=== PATIENT | female | born 1995 | race Caucasian/White ===

== ENCOUNTER 2017-12-05 12:36 | Emergency (ER) | payer MEDICAID ==
[2017-12-05] MEDS ORDERED: Acyclovir* 200 MG CAP PO ONE (13:16)
[2017-12-05] MEDS ORDERED: Cephalexin CAP* 500 MG PO ONE (13:16)
[2017-12-05 13:48] VITALS: BP 104/65
--- NOTE | 2017-12-06 11:54 | ED ---
Thalia Alas Edward, scribed for Glenda Evans MD on 12/05/17 at 1303 . Lower Extremity - HPI Summary HPI Summary: 22 y/o female presents to the ED c/o area of erythema and edema on RLE starting 2 days ago. The area is painful, waxing and waning in severity. Pain aggravated with ambulation. Today the pain is better than it was yesterday. Pt states popped yesterday and scabbed over. Pt is 8.5 weeks . Pt states she had a similar episode when she was previously. Pt had chicken pox at 17. PMHx asthma. - History of Current Complaint Chief Complaint: EDExtremityLower Stated Complaint: RT LEG SWOLLEN Time Seen by Provider: 12/05/17 12:57 Hx Obtained From: Patient Hx Last Menstrual Period: irreg - does not recall Onset/Duration: Days Pain Intensity: 0 Timing: Constant Location: Is Discrete @ - RLE Associated Signs And Symptoms: Positive: Redness Aggravating Factor(s): Ambulation Alleviating Factor(s): Nothing - Allergies/Home Medications Allergies/Adverse Reactions: Allergies Allergy/AdvReac Type Severity Reaction Status Date / Time ciprofloxacin [From Cipro] Allergy Hives Verified 12/05/17 13:10 Fish Containing Products Allergy Hives Verified 12/05/17 13:08 levofloxacin [From Levaquin] Allergy Itching Verified 12/05/17 13:08 seasonal Allergy Coughing Uncoded 03/13/15 13:43 PMH/Surg Hx/FS Hx/Imm Hx Previously Healthy: No Endocrine/Hematology History: Reports: Hx Thyroid Disease - hypo- just monitoring, Hx Anemia Denies: Hx Anticoagulant Therapy, Hx Diabetes Cardiovascular History: Reports: Hx Hypertension - Pt reports "Borderline high blood pressure", no meds Respiratory History: Reports: Hx Asthma, Hx Pneumonia, Hx Seasonal Allergies Denies: Hx Chronic Obstructive Pulmonary Disease (COPD) GI History: Reports: Other GI Disorders - lactose intolerant Denies: Hx Ulcer Sensory History: Reports: Hx Contacts or Glasses Opthamlomology History: Reports: Hx Contacts or Glasses Psychiatric History: Reports: Hx Anxiety, Hx Attention Deficit Hyperactivity Disorder, Hx Depression, Hx Panic Disorder, Hx Inpatient Treatment, Hx Community Mental Health Tx, Hx Bipolar Disorder, Hx Suicide Attempt, Hx of Violent Episodes Against Others, Other Psychiatric Issues/Disorders - odd, adhd Denies: Hx Eating Disorder, Hx Substance Abuse - Surgical History Surgery Procedure, Year, and Place: tooth extraction at age 10yrs - Immunization History Date of Tetanus Vaccine: unknown Infectious Disease History: No Infectious Disease History: Denies: Hx Clostridium Difficile, Hx Hepatitis, Hx Human Immunodeficiency Virus (HIV), Hx of Known/Suspected MRSA - exposed to mrsa, Hx Tuberculosis, Traveled Outside the [place] in Last 30 Days - Family History Known Family History: Positive: Unknown - Social History Alcohol Use: None Substance Use Type: Reports: None Substance Use Comment - Amount & Last Used: trying to cut back Hx Tobacco Use: Yes Smoking Status (MU): Heavy Every Day Tobacco Smoker Type: Cigarettes Amount Used/How Often: 1/2 ppd or less Review of Systems Constitutional: Negative Eyes: Negative ENT: Negative Cardiovascular: Negative Respiratory: Negative Gastrointestinal: Negative Genitourinary: Negative Musculoskeletal: Negative Positive: Rash - red spot on RLE Neurological: Negative Psychological: Normal All Other Systems Reviewed And Are Negative: Yes Physical Exam - Summary Physical Exam Summary: GENERAL: ~Patient is a well developed and nourished F who is lying comfortable in the stretcher. ~Patient is not in any acute respiratory distress. HEAD AND FACE: Normocephalic EYES: PERRLA, EOMI x 2. EARS: Hearing grossly intact. MOUTH: Oropharynx within normal limits. NECK: Supple, trachea is midline, no adenopathy, no JVD, no carotid bruit. CHEST: Symmetric, no tenderness at palpation LUNGS: Clear to auscultation bilaterally. No wheezing or crackles. CVS: Regular rate and rhythm, S1 and S2 present, no murmurs or gallops appreciated. ABDOMEN: Soft, non-tender. Bowel sounds are normal. No abdominal abnormal pulsations. EXTREMITIES: Full ROM in all major joints, no edema, no cyanosis or clubbing. NEURO: Alert and oriented x 3. No acute neurological deficits. Speech is normal and follows commands. SKIN: Dry and warm. Small area of erythema with vesicular ruptures in the middle @ lateral aspect of RLE. Triage Information Reviewed: Yes Vital Signs On Initial Exam: Initial Vitals Temp Pulse Resp BP Pulse Ox 97.8 F 85 15 100/78 100 12/05/17 12:40 12/05/17 12:40 12/05/17 12:40 12/05/17 12:40 12/05/17 12:40 Vital Signs Reviewed: Yes Diagnostics - Vital Signs Vital Signs Temp Pulse Resp BP Pulse Ox 12/05/17 12:40 97.8 F 85 15 100/78 100 - Laboratory Lab Statement: Any lab studies that have been ordered have been reviewed, and results considered in the medical decision making process. Lower Extremity Course/Dx - Course Assessment/Plan: 25 y/o female presents to the ED with vesicular rash on RLE, could be shingles or MRSA. Given the pt is I would prefer to be aggressive to treat MRSA and shingles. She was sent home on Keflex and acyclovir for 10 days. - Diagnoses Provider Diagnoses: Vesicular rash Discharge - Sign-Out/Discharge Documenting (check all that apply): Discharge/Admit/Transfer - Discharge Plan Condition: Stable Disposition: HOME Prescriptions: Acyclovir [Zovirax] 800 mg PO Q6HR 10 Days #80 tablet Cephalexin CAP* [Keflex CAP*] 500 mg PO QID 10 Days #40 cap Patient Education Materials: MRSA (Methicillin-Resistant Staphylococcus Aureus ) (ED), Shingles (ED) Referrals: Non Staff,Doctor [Primary Care Provider] - 4 Days (PLEASE F/U IN 3-5 DAYS) Additional Instructions: RETURN TO THE ED FOR CHANGING/WORSENING SYMPTOMS The documentation as recorded by the Thalia hutchins Edward accurately reflects the service I personally performed and the decisions made by , Glenda Evans MD.
== END 2017-12-05 13:47 | disposition home or self-care (01) ==
LOC: ED 12:36 → SUPCPDRO 12:36 → ED 13:47
DX: O26.891 Other specified pregnancy related conditions, first trimester (principal); R21 Rash and other nonspecific skin eruption; O99.331 Smoking (tobacco) complicating pregnancy, first trimester; F17.210 Nicotine dependence, cigarettes, uncomplicated; O99.281 Endocrine, nutritional and metabolic diseases complicating pregnancy, first trimester; E03.9 Hypothyroidism, unspecified; Z3A.08 8 weeks gestation of pregnancy
CPT/HCPCS: 87070; 87077; 87205; 87529; 87798; 99282; A9270-GY

== ENCOUNTER 2018-06-21 12:02 | Inpatient (IN) | payer OTHER ==
[2018-06-21] MEDS ORDERED: Misoprostol TAB* 100 MCG PO ONE (13:22)
[2018-06-21] MEDS ORDERED: Penicillin G Potassium IV* 5,000,000 UNITS in NS 0.9% 100 ML* 100 ML IVPB ONE ×2 (13:22→13:27)
[2018-06-21] MEDS ORDERED: Nicotine PATCH 7 MG/24 HR* PATCH TRANSDERM SCH (14:00)
--- NOTE | 2018-06-21 14:44 | HP ---
General Information - Reason for Visit cervical ripening - General Information Maternal Age: 23 Grav: 2 Para: 1 SAB: 1 IEA: 0 Estimated Due Date: 06/27/18 Determined By: LMP Maternal Blood Type and Rh: A Positive - Results this Serology/RPR Result: Non-Reactive Rubella Result: Immune HBsAg Result: Negative HIV Result: Negative GBS Culture Result: Positive Past Medical History Delivery History: Hx Uncomplicated Vaginal Delivery Pertinent Past Medical History: See Records - hx UTIs, anxiety and depression, hx hypothyroidism Pertinent Past Surgical History: See Records - gallbladder removed Pertinent Family History: See Records - stroke, CVD, HTN, high chol, thyroid, mental illness, DM - Antepartal Records Antepartal Records: Reviewed, Complicated by: - tobacco use, THC, 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, gestational diabetes Review of Systems Constitutional: Comfortable CV Complaint: No Respiratory: Shortness of Breath: No Gastrointestinal: No Nausea/Vomiting, Normal Bowel Movement Genitourinary: No Dysuria, No Bleeding, No Leaking Fluid Musculoskeletal: No Complaint, No Epigastric Pain Neurological: No Headache, No Visual Changes Movement: Normal Exam Allergies/Adverse Reactions: Allergies ciprofloxacin [From Cipro] Allergy (Verified 12/05/17 13:10) Hives Fish Containing Products Allergy (Verified 12/05/17 13:08) Hives levofloxacin [From Levaquin] Allergy (Verified 12/05/17 13:08) Itching seasonal Allergy (Uncoded 03/13/15 13:43) Coughing T:98.9, P:94, R:18, BP: 107/70, O2:98% - Measurements Height: 5 ft 3 in Weight: 160 lb Weight in lbs: 160.900904 Body Mass Index (BMI): 28.3 Pre- Weight: 135 lb Weight Gained This : 25 lbs and 0 ozs - Exam Breast: Breast Exam Deferred CVA: No CVA Tenderness Extremities: No Edema Heart: Normal Rhythm/Heart Sounds HEENT: No Significant Findings Lungs: Clear Bilaterally Rectal: Rectal Exam Deferred Reflexes: DTR 2+ Thyroid: No Thyromegaly - Abdominal Exam Abdomen Exam: Fundal Height Consistent with Dates - Ultrasound/Biophysical Profile Ultrasound Status: Not Done Targeted Exam Findings Estimated Weight: 7lbs 2oz Cervical Exam: 2cm Effacement: 50% Station: -2 Presenting Part: Vertex Membrane Status: Intact Bleeding/Discharge: None EFM Findings - External Monitor Findings Baseline Heart Rate: 140 External Monitor Findings: Accelerations Present, No Pattern of Variable or Late Decelerations, Variability Moderate, Baseline Stable Contractions: None Assessment/Plan - Assessment 23 y.o. , 39w1d EGA, GBS +, Gestational diabetes - Obstetrical Risk Factors Obstetrical Risk Factors: GBS Positive, Tobacco Use, Psychosocial Issues - Plan Plan: Cervical Ripening - Date/Time of Admission Date of Admission: 06/21/18 Time of Admission: 14:46
[2018-06-21] MEDS ORDERED: Nalbuphine* 10 MG/ML 1 ML VIAL IV ONE (20:05)
[2018-06-21] MEDS ORDERED: Promethazine INJ(RESTRICTED)* 25 MG/ML 1 ML VIAL IV ONE (20:05)
--- NOTE | 2018-06-21 20:13 | PN ---
Progress Note - Progress Note Date of Service: 06/21/18 SOAP: Subjective: [Pt reports cramping, denies contractions, -LOF, +FM, +bloody show] Objective: [T:98.9, R:18, BP: 108/69, P:83 FHT: 140 bpm, +accels, -decels, moderate variability, ctx q 3 min cervix: 3-4cm/80%/-1] Assessment: [23 y.o. , GBS +, Gestational diabetes, early labor] Plan: [1) Initiate IV access and GBS prophylaxis 2) Hydrotherapy 3) Revaluate PRN]
[2018-06-21 21:31] LABS: Hematocrit 37 % (35-47); Hemoglobin 12.7 g/dl (12.0-16.0); Mean Corpuscular HGB Conc 35 g/dl (31-36); Mean Corpuscular Hemoglobin 31 pg (27-31); Mean Corpuscular Volume 89 fL (80-97); Mean Platelet Volume 8.1 fL (7.4-10.4); Platelet Count 281 10^3/ul (150-450); Red Blood Count 4.12 10^6/ul (4.00-5.40); Red Cell Distribution Width 14 % (10.5-15); White Blood Count 19.7 10^3/ul (3.5-10.8)
[2018-06-21 21:53] LABS: ABS Basophils 0.1 10^3/ul (0-0.2); ABS Eosinophils 0.2 10^3/ul (0-0.6); ABS Lymphocytes 3.4 10^3/ul (1.0-4.8); ABS Monocytes 1.6 10^3/ul (0-0.8); ABS Neutrophils 14.4 10^3/ul (1.5-7.7); ABS Nucleated RBC 0 10^3/ul; Lymphocyte % 17.3 % (25-47); Nucleated Red Blood Cells % 0
[2018-06-21] MEDS ORDERED: NS 0.9% 100 ML* 0 ML ONE (21:57)
[2018-06-22] MEDS ORDERED: Penicillin G Potassium IV* 2,500,000 UNITS in NS 0.9% 100 ML* 100 ML IVPB SCH (02:00)
--- NOTE | 2018-06-22 03:48 | PN ---
Progress Note - Progress Note Date of Service: 06/22/18 SOAP: Subjective: [Pt reports increased pain with ctx. Increased pressure. Requests pain medications] Objective: [T:97.2, R:18, BP:99/39, P:57 FHT: 130 bpm, +accels, -decels, moderate variability cervix:7/90/+1 per nurse exam] Assessment: [23 y.o. , active labor] Plan: [1. nitrous 2) vaginal delivery anticipated]
[2018-06-22] MEDS ORDERED: Lidocaine 2% VISCOUS* 15 ML UDC ONE (03:58)
--- NOTE | 2018-06-22 04:34 | PROCNOTE ---
[facility] OB: Delivery Note - Delivery A Date of : 06/22/18 Time of : 04:15 Sex: Male Gestational Age in Weeks and Days at Delivery: 39 Weeks and 2 Days Delivery Method: Spontaneous Vaginal Labor: Induced Did Patient attempt ?: N/A, No Previous Amniotic Fluid: Clear Estimated Blood Loss: 150 Anesthesia/Analgesia: IM/IV, Nitrous-Labor Delivered By: Jinny Matias - Nursery Level of Nursery: Regular/Bedside - Perineum Perineal Injury: Abrasion Only - Not Repaired Perineal Repair: None - Events Delivery Events of Note: Pitocin Only After Delivery Delivery Events of Note Comment: nuchal cord x 1 easily reduced
[2018-06-22] MEDS ORDERED: OXYTOCIN* 10 UNITS/ML 1 ML VIAL IV ONE (04:35)
[2018-06-22] MEDS ORDERED: Acetaminophen TAB* 325 MG PO PRN (04:35)
[2018-06-22] MEDS ORDERED: Witch Hazel PAD* JAR TOPICAL PRN (04:35)
[2018-06-22] MEDS ORDERED: Dibucaine 1% 28.35 GM TUBE PR PRN (04:35)
[2018-06-22] MEDS ORDERED: Glycerin ADULT SUPP PR PRN (04:35)
[2018-06-22] MEDS ORDERED: Simethicone TAB* 80 MG TAB.CHEW PO SCH (08:30)
[2018-06-22] MEDS: Docusate CAP* 100 MG PO SCH ×3 (09:45→19:51)
[2018-06-22] MEDS: Ibuprofen TAB* 600 MG PO PRN ×2 (09:45→19:51)
[2018-06-23 07:01] LABS: ABS Basophils 0.1 10^3/ul (0-0.2); ABS Eosinophils 0.4 10^3/ul (0-0.6); ABS Monocytes 1.3 10^3/ul (0-0.8); ABS Neutrophils 10.1 10^3/ul (1.5-7.7); ABS Nucleated RBC 0 10^3/ul; Eosinophil % 2.6 % (0-6); Hematocrit 33 % (35-47); Lymphocyte % 29.5 % (25-47); Mean Corpuscular HGB Conc 34 g/dl (31-36); Mean Corpuscular Hemoglobin 31 pg (27-31); Mean Corpuscular Volume 90 fL (80-97); Mean Platelet Volume 8.1 fL (7.4-10.4); Nucleated Red Blood Cells % 0.1; Platelet Count 254 10^3/ul (150-450); Red Blood Count 3.62 10^6/ul (4.00-5.40); Red Cell Distribution Width 14 % (10.5-15); White Blood Count 16.9 10^3/ul (3.5-10.8)
[2018-06-23] MEDS: Ibuprofen TAB* 600 MG PO PRN ×2 (07:22→23:14)
[2018-06-23] MEDS ORDERED: Ferrous Gluconate TAB* 324 MG TAB PO SCH (09:00)
[2018-06-23] MEDS: Docusate CAP* 100 MG PO SCH ×3 (14:04→23:15)
[2018-06-24 08:26] VITALS: BP 108/39
== END 2018-06-24 10:05 | disposition home or self-care (01) | DRG 560 ==
LOC: MCHOBOUT 12:02 → MCHOB 20:10
PROVIDERS: ADMIT Midwife; ATTEND Midwife
PROC: 4A1HXCZ Monitoring of Products of Conception, Cardiac Rate, External Approach (ICD-10-PCS; 2018-06-21)
PROC: 10907ZC Drainage of Amniotic Fluid, Therapeutic from Products of Conception, Via Natural or Artificial Opening (ICD-10-PCS; principal; 2018-06-22)
PROC: 10E0XZZ Delivery of Products of Conception, External Approach (ICD-10-PCS; 2018-06-22)
DX: O24.429 Gestational diabetes mellitus in childbirth, unspecified control (principal); O98.52 Other viral diseases complicating childbirth; Z37.0 Single live birth; O99.344 Other mental disorders complicating childbirth; O99.824 Streptococcus B carrier state complicating childbirth; F32.9 Major depressive disorder, single episode, unspecified; F41.9 Anxiety disorder, unspecified; O99.52 Diseases of the respiratory system complicating childbirth; O99.334 Smoking (tobacco) complicating childbirth; B00.9 Herpesviral infection, unspecified; J45.909 Unspecified asthma, uncomplicated; O69.81X0 Labor and delivery complicated by cord around neck, without compression, not applicable or unspecified; O71.82 Other specified trauma to perineum and vulva; Z3A.39 39 weeks gestation of pregnancy; Z87.440 Personal history of urinary (tract) infections; Z88.1 Allergy status to other antibiotic agents; Z91.013 Allergy to seafood; Z90.49 Acquired absence of other specified parts of digestive tract
CPT/HCPCS: 36415; 80307; 85025; 86850; 86900; 86901; A9270-GY; J2300; J2540; J2550; S0191